=== PATIENT | male | born 1950 | race Caucasian/White ===

== ENCOUNTER 2018-06-21 05:22 | Day surgery (SDC) | payer OTHER ==
[~2018-06-21] VITALS: Ht 180.3 cm; Wt 95.1 kg
[2018-06-21] MEDS ORDERED: SODIUM CHLORIDE 0.9% 1000ML 1,000 ML IV ONE (05:54)
[2018-06-21 05:55] VITALS: BP 160/91
[2018-06-21] MEDS ORDERED: LOSA100T58 PO (06:28)
[2018-06-21] MEDS ORDERED: FURO80TA3 PO (06:28)
[2018-06-21] MEDS ORDERED: CARB200C4 PO (06:28)
[2018-06-21] MEDS ORDERED: PRAVASTATIN (06:28)
[2018-06-21] MEDS ORDERED: SPIR100T5 PO (06:28)
[2018-06-21] MEDS ORDERED: AMLODIPINE (06:28)
[2018-06-21] MEDS ORDERED: NPH,100V11 SQ (06:28)
[2018-06-21] MEDS ORDERED: CARV25TA PO (06:28)
[2018-06-21] MEDS ORDERED: INSU100C14 SQ (06:28)
[2018-06-21] MEDS ORDERED: AEC81 PO (06:28)
[2018-06-21] MEDS ORDERED: ADAL20SY SQ (06:28)
[2018-06-21] MEDS ORDERED: PROPOFOL 1000 MG/100 ML 100 ML IV ONE (06:34)
[2018-06-21 07:06] VITALS: BP 120/66
[2018-06-21 07:13] VITALS: BP 120/66
[2018-06-21 07:18] VITALS: BP 148/78
--- NOTE | 2018-06-21 07:45 | NUR ---
PT GIRLFRIEND AT BEDSIDE TO RECEIVE POST CARE INSTRUCTIONS, PT GIVEN APPOINTMENT FOLLOW UP DATE, BOTH PT AND FRIEND VERBALIZED UNDERSTANDING. PT STABLE NO DISTRESS, TOLERATED PROCEDURE VERY WELL, ABLE TO DRINK FLUIDS IN GI RECOVERY WITH NO DIFFICULTY. PT PLACED IN A WHEELCHAIR, DRIVEN HOME BY GIRLFRIEND.
== END 2018-06-21 07:45 | disposition home or self-care (01) ==
LOC: DAH 05:22 → ENDO 05:22
PROVIDERS: ATTEND Internal Medicine
DX: Z12.11 Encounter for screening for malignant neoplasm of colon (principal); D12.3 Benign neoplasm of transverse colon; K63.5 Polyp of colon; K29.50 Unspecified chronic gastritis without bleeding; K57.30 Diverticulosis of large intestine without perforation or abscess without bleeding; K64.0 First degree hemorrhoids; E11.9 Type 2 diabetes mellitus without complications; Z86.010 Personal history of colon polyps; G50.0 Trigeminal neuralgia; I10 Essential (primary) hypertension; E78.5 Hyperlipidemia, unspecified; J44.9 Chronic obstructive pulmonary disease, unspecified; Z86.73 Personal history of transient ischemic attack (TIA), and cerebral infarction without residual deficits; I21.3 ST elevation (STEMI) myocardial infarction of unspecified site; I11.0 Hypertensive heart disease with heart failure; I50.9 Heart failure, unspecified; G40.909 Epilepsy, unspecified, not intractable, without status epilepticus; Z98.890 Other specified postprocedural states; Z79.899 Other long term (current) drug therapy; Z79.01 Long term (current) use of anticoagulants; Z79.84 Long term (current) use of oral hypoglycemic drugs; Z80.8 Family history of malignant neoplasm of other organs or systems; Z80.1 Family history of malignant neoplasm of trachea, bronchus and lung
CPT/HCPCS: 43239; 45380; 45385; 82948 ×2; 88305; 93005; A4606; J2704; J7030

== ENCOUNTER 2018-08-14 21:00 | Emergency (ER) | payer OTHER ==
[~2018-08-14 21:00] MED LIST: ADAL20SY SQ; AEC81 PO; AMLODIPINE; CARB200C4 PO; CARV25TA PO; FURO80TA3 PO; INSU100C14 SQ; LOSA100T58 PO; NPH,100V11 SQ; PRAVASTATIN; SPIR100T5 PO
[2018-08-14] MEDS ORDERED: KETOROLAC TROMETHAMINE 30MG/ML ONE (21:45)
[2018-08-14] MEDS ORDERED: CYCLOBENZAPRINE HCL 10 MG TABLET ONE (21:45)
== END 2018-08-14 22:42 | disposition home or self-care (01) ==
LOC: EDH 21:00
DX: M54.16 Radiculopathy, lumbar region (principal); M25.551 Pain in right hip; J44.9 Chronic obstructive pulmonary disease, unspecified; I25.10 Atherosclerotic heart disease of native coronary artery without angina pectoris; I11.0 Hypertensive heart disease with heart failure; I50.9 Heart failure, unspecified; I25.2 Old myocardial infarction; E11.9 Type 2 diabetes mellitus without complications; Z86.73 Personal history of transient ischemic attack (TIA), and cerebral infarction without residual deficits; Z88.0 Allergy status to penicillin; Z88.8 Allergy status to other drugs, medicaments and biological substances; Z79.4 Long term (current) use of insulin; Z79.899 Other long term (current) drug therapy
CPT/HCPCS: 96372; 99283; J1885

== ENCOUNTER 2019-03-07 05:32 | Day surgery (SDC) | payer OTHER ==
[~2019-03-07] VITALS: Ht 182.9 cm; Wt 97.1 kg
[2019-03-07] VITALS (15 sets, daily range): BP systolic 141–199; BP diastolic 71–113
[~2019-03-07 05:32] MED LIST changes: +ALBU1.252 IH; +ATOR20TA65 PO; -CARB200C4 PO; +CARB200C7 PO; +CYAN1TAB44 PO; +GABA-529 PO; +ISOS20TA7 PO; +LATA7.5D OP; +SILD20TA14 PO
[2019-03-07] MEDS ORDERED: SODIUM CHLORIDE 0.9% 1000ML 1,000 ML IV ONE (05:45)
--- NOTE | 2019-03-07 06:34 | NUR ---
NURSING REPORTED TO DEANA MOREL ALL ABNORMAL FINDINGS AND HE SPOKE TO PT AND EVAL MED RECORD NO NEW ORDERS RECD WILL STATE PROC AT 8 AM TO CONT HIS EVALUATION Addendum: 03/07/19 at 0638 by EMILY THURSTON RN Amended: Links added.
[2019-03-07] MEDS ORDERED: PROPOFOL 10 MG/ML 20ML VIAL IV ONE (08:01)
--- NOTE | 2019-03-07 08:30 | NUR ---
DEANA NOTIFIED OF PT'S ELEVATED BP. NO NEW ORDERS GIVEN FOR BP TREATMENT. Addendum: 03/07/19 at 0842 by JONATHAN CUMMINS RN RN Amended: Links added.
[2019-03-07] MEDS ORDERED: INSULIN HUMULIN R 100 UNIT/ML 3ML ONE (08:51)
[2019-03-07] MEDS ORDERED: HYDRALAZINE HCL 20 MG/ML VIAL ONE (09:16)
== END 2019-03-07 10:09 | disposition home or self-care (01) ==
LOC: DAH 05:32 → ENDO 05:32
PROVIDERS: ATTEND Internal Medicine
DX: R13.10 Dysphagia, unspecified (principal); K22.70 Barrett's esophagus without dysplasia; K44.9 Diaphragmatic hernia without obstruction or gangrene; K31.89 Other diseases of stomach and duodenum; K51.90 Ulcerative colitis, unspecified, without complications; K29.70 Gastritis, unspecified, without bleeding; K64.9 Unspecified hemorrhoids; K57.30 Diverticulosis of large intestine without perforation or abscess without bleeding; J44.9 Chronic obstructive pulmonary disease, unspecified; I25.10 Atherosclerotic heart disease of native coronary artery without angina pectoris; I25.2 Old myocardial infarction; E11.9 Type 2 diabetes mellitus without complications; E78.5 Hyperlipidemia, unspecified; G40.909 Epilepsy, unspecified, not intractable, without status epilepticus; I11.0 Hypertensive heart disease with heart failure; I50.9 Heart failure, unspecified; Z86.73 Personal history of transient ischemic attack (TIA), and cerebral infarction without residual deficits; G50.0 Trigeminal neuralgia; Z79.82 Long term (current) use of aspirin; Z79.899 Other long term (current) drug therapy; Z79.4 Long term (current) use of insulin; Z80.0 Family history of malignant neoplasm of digestive organs
CPT/HCPCS: 43239; 43248; 82948 ×3; 93005; A4215; A4221; A4222; A4223; A4606; A4620; A4663; J0360; J1815; J2704; J7030

== ENCOUNTER 2019-03-11 06:37 | Inpatient (IN) | payer OTHER ==
[~2019-03-11] VITALS: Ht 182.9 cm; Wt 97.2 kg
[~2019-03-11 06:37] MED LIST changes: -AMLODIPINE; -ISOS20TA7 PO; -LATA7.5D OP; -LOSA100T58 PO; -NPH,100V11 SQ; -PRAVASTATIN; -SPIR100T5 PO
[2019-03-11] MEDS ORDERED: HYDRALAZINE HCL 20 MG/ML VIAL ONE ×2 (06:56→12:12)
[2019-03-11] MEDS ORDERED: NITROGLYCERIN 1GM/1 INCH PACKET TD ONE (06:56)
[2019-03-11] MEDS ORDERED: NITROGLYCERIN 0.4 MG SL TAB SL ONE (06:56)
[2019-03-11] MEDS ORDERED: MORPHINE SULFATE 2 MG/ML 1ML SYG ONE (06:57)
[2019-03-11] MEDS ORDERED: IPRATROPIUM/ALBUTEROL SULFATE 3 ML SOLUTION IH ONE (07:00)
[2019-03-11 07:04] LABS: BASOPHILS % (AUTO) 0.5 % (0.0-5.0); EOSINOPHILS % (AUTO) 0.4 % (0.0-8.0); HEMATOCRIT 41.3 % (42-54); LYMPHOCYTES % (AUTO) 15.6 % (21.0-51.0); MEAN CORPUSCULAR HEMOGLOBIN 31.2 pg (27.0-33.0); MEAN CORPUSCULAR HGB CONC 33.9 g/dL (32.0-36.0); MONOCYTES % (AUTO) 9.4 % (3.0-13.0); NEUTROPHILS % (AUTO) 74.1 % (40.0-77.0); NUCLEATED RED BLOOD CELLS 0.1 % (0.0-0.19); PLATELET COUNT (AUTO) 166 K/uL (130-400); RED BLOOD CELL COUNT(AUTO) 4.49 MIL/uL (4.50-6.20); RED CELL DISTRIBUTION WIDTH 13.9 % (11.0-15.5); WHITE BLOOD COUNT (AUTO) 6.8 K/uL (4.8-10.8)
[2019-03-11] MEDS ORDERED: CEFTRIAXONE SODIUM 1 GM ONE (07:13)
[2019-03-11] MEDS ORDERED: SODIUM CHLORIDE 0.9% 50 ML IV ONE (07:15)
[2019-03-11 07:16] LABS: INR 0.96 (0.85-1.15); PARTIAL THROMBOPLASTIN TIME 32.4 SEC (26.3-35.5); PROTHROMBIN TIME 10.1 SEC (9.6-11.6)
[2019-03-11 07:18] LABS: ABG BASE EXCESS -1.3 mmol/L (-2.0-3.0); ABG HCO3 24.1 mmol/L (21.0-28.0); ABG OXYGEN SATURATION 98.6 % (95.0-99.0); ABG PCO2 43 mmHg (35-48)
[2019-03-11 07:31] LABS: B-TYPE NATRIURETIC PEPTIDE 1300 pg/mL (0-100)
[2019-03-11 07:48] LABS: ALBUMIN 3.3 g/dL (3.5-5.0); BILIRUBIN,TOTAL 0.3 mg/dL (0.2-1.0); CREATININE 1.2 mg/dL (0.5-1.5); POTASSIUM 3.9 mmol/L (3.5-5.1); TOTAL PROTEIN, SERUM 7.8 g/dL (6.0-8.3)
[2019-03-11] MEDS ORDERED: LEVOFLOXACIN 500 MG/D5W 100 ML 100 ML ONE (08:12)
[2019-03-11 08:14] LABS: APPEARANCE,URINE Clear (CLEAR); BILIRUBIN,URINE Negative (NEGATIVE); COLOR,URINE Yellow (YELLOW); GLUCOSE, URINE (UA) >=1000 mg/dL (NEGATIVE); KETONES,URINE Negative (NEGATIVE); LEUKOCYTE ESTERASE ,URINE Negative (NEGATIVE); NITRATE,URINE Negative (NEGATIVE); OCCULT BLOOD,URINE Negative (NEGATIVE); PROTEIN,URINE 300 mg/dL (NEGATIVE); UROBILINOGEN,URINE 0.2 mg/dL (0.2-1.0)
[2019-03-11 08:24] LABS: BACTERIA,URINE None Seen /HPF (None Seen); RBC,URINE None Seen /HPF (0-1); SQUAMOUS EPITHELIAL CELL,UR Rare /HPF (0-2); WBC,URINE None Seen /HPF (0-1)
[2019-03-11] MEDS ORDERED: FUROSEMIDE 10 MG/ML 4ML VIAL ONE (09:04)
[2019-03-11] MEDS ORDERED: ALBUMIN (HUMAN) 25% 0 ML IV ONE (09:04)
[2019-03-11] MEDS ORDERED: ALBUMIN (HUMAN) 25% 50 ML IV ONE ×2 (09:06→09:14)
[2019-03-11] MEDS ORDERED: ONDANSETRON HCL 4 MG/2 ML VIAL IV PRN (10:15)
[2019-03-11] MEDS ORDERED: FUROSEMIDE 10 MG/ML 2ML VIAL IV SCH (10:15)
[2019-03-11] MEDS ORDERED: ACETAMINOPHEN 325 MG TAB PO PRN (10:15)
[2019-03-11] MEDS ORDERED: MORPHINE SULFATE 4 MG/1ML SYG IV PRN (10:15)
[2019-03-11] MEDS: INSULIN HUMULIN R 100 UNIT/ML 3ML SQ SCH ×2 (11:30→23:27)
[2019-03-11] MEDS ORDERED: INSULIN HUMULIN R 100 UNIT/ML 3ML ONE (12:20)
[2019-03-11 13:00] VITALS: BP 155/89
[2019-03-11] MEDS: FUROSEMIDE 10 MG/ML 2ML VIAL IV SCH ×3 (14:00→23:26)
[2019-03-11] MEDS ORDERED: IPRATROPIUM/ALBUTEROL SULFATE 3 ML SOLUTION IH SCH (14:00)
[2019-03-11] MEDS ORDERED: SODIUM CHLORIDE 3% FOR INHALATION 4 ML/AMP VIAL.NEB IH ONE ×2 (14:14→16:30)
[2019-03-11 16:35] VITALS: BP 143/78
[2019-03-11] MEDS ORDERED: NPH,100V11 SQ (18:30)
[2019-03-11] MEDS ORDERED: INSU100C6 SQ (18:30)
[2019-03-11] MEDS ORDERED: FURO80TA3 PO (18:30)
[2019-03-11] MEDS ORDERED: ISOS20TA7 PO (18:30)
[2019-03-11] MEDS ORDERED: GABA600T10 PO (18:30)
[2019-03-11] MEDS ORDERED: PANT40TA25 PO (18:30)
[2019-03-11] MEDS ORDERED: ASPI-555 PO (18:30)
[2019-03-11] MEDS ORDERED: CARAL PO (18:30)
[2019-03-11] MEDS ORDERED: CARB200T6 PO (18:30)
[2019-03-11] MEDS ORDERED: NITR0.4T50 SL (18:30)
[2019-03-11] MEDS ORDERED: ATOR40TA69 PO (18:30)
[2019-03-11 19:00] VITALS: BP 166/92
[2019-03-11 23:00] VITALS: BP 192/95
[2019-03-12] VITALS (7 sets, daily range): BP systolic 147–175; BP diastolic 78–101
[2019-03-12] MEDS: HYDRALAZINE HCL 20 MG/ML VIAL IV PRN ×2 (01:44→11:40)
[2019-03-12] MEDS ORDERED: SODIUM CHLORIDE 3% FOR INHALATION 4 ML/AMP VIAL.NEB IH ONE (01:44)
[2019-03-12 05:34] LABS: BASOPHILS % (AUTO) 0.6 % (0.0-5.0); EOSINOPHILS % (AUTO) 0.5 % (0.0-8.0); HEMATOCRIT 37.6 % (42-54); LYMPHOCYTES % (AUTO) 13.9 % (21.0-51.0); MEAN CORPUSCULAR HEMOGLOBIN 31.5 pg (27.0-33.0); MEAN CORPUSCULAR HGB CONC 35.1 g/dL (32.0-36.0); MEAN CORPUSCULAR VOLUME 89.9 fL (79-99); MONOCYTES % (AUTO) 12.1 % (3.0-13.0); NEUTROPHILS % (AUTO) 72.9 % (40.0-77.0); NUCLEATED RED BLOOD CELLS 0.1 % (0.0-0.19); PLATELET COUNT (AUTO) 173 K/uL (130-400); RED BLOOD CELL COUNT(AUTO) 4.19 MIL/uL (4.50-6.20); WHITE BLOOD COUNT (AUTO) 7.7 K/uL (4.8-10.8)
[2019-03-12 05:40] LABS: HEMOGLOBIN A1C 10.9 % (4.0-6.0)
[2019-03-12] MEDS: INSULIN HUMULIN R 100 UNIT/ML 3ML SQ SCH ×4 (05:43→22:27)
[2019-03-12 05:50] LABS: B-TYPE NATRIURETIC PEPTIDE 602 pg/mL (0-100)
[2019-03-12] MEDS: FUROSEMIDE 10 MG/ML 2ML VIAL IV SCH (05:51)
[2019-03-12 05:56] LABS: CREATININE 1.1 mg/dL (0.5-1.5); MAGNESIUM 1.5 mg/dL (1.80-2.40); PHOSPHORUS 3.3 mg/dL (2.5-4.9)
[2019-03-12 05:57] LABS: POTASSIUM 2.9 mmol/L (3.5-5.1)
--- NOTE | 2019-03-12 06:07 | NUR ---
MAGNESIUM: 1.5 ; POTASSIUM: 2.9 0607: CALLED FIGURE REFINISHER AND REPAIRER HOSPITALIST TO REPORT POTASSIUM AND MAGNESIUM RESULT 0640 - DID A FOLLOW UP CALL FOR HOSPITALIST. STILL WITH NO RETURN CALL. WAS ABLE TO TALK WITH DR. REAL AFTER GIVING REPORT TO DAY SHIFT NURSE. ORDERED TO PLACE PT ON PROTOCOL. DAY SHIFT NURSE MADE AWARE.
[2019-03-12] MEDS ORDERED: POTASSIUM CHLORIDE 20 MEQ ERTAB PO PRN (07:30)
[2019-03-12] MEDS ORDERED: POTASSIUM CHLORIDE 20MEQ/100ML 100 ML IV PRN (07:30)
[2019-03-12] MEDS ORDERED: MAGNESIUM 2GM PREMIX 50ML 50 ML IV PRN (07:30)
[2019-03-12] MEDS ORDERED: LIDOCAINE HCL-MPF 1% 2ML VIAL IV PRN (07:30)
[2019-03-12] MEDS: FAMOTIDINE 20MG TAB 20 MG TAB PO SCH (07:57)
[2019-03-12] MEDS: POTASSIUM CHLORIDE 10 MEQ/TAB.SA PO SCH (07:57)
[2019-03-12] MEDS: ENOXAPARIN SODIUM 40 MG/0.4 ML SYRINGE SQ SCH (07:58)
[2019-03-12] MEDS ORDERED: NITROGLYCERIN 0.4 MG SL TAB SL SCH (08:15)
[2019-03-12] MEDS: SUCRALFATE 1 GM/10 ML PO SCH ×4 (09:00→22:31)
[2019-03-12] MEDS: ISOSORBIDE MONONITRATE 20 MG TABLET PO SCH (09:00)
[2019-03-12] MEDS: GABAPENTIN 300 MG CAPSULE PO SCH ×3 (09:00→22:30)
[2019-03-12] MEDS: CARBAMAZEPINE 200 MG TABLET PO SCH ×3 (09:00→22:29)
[2019-03-12] MEDS: ASPIRIN 81 MG EC TAB PO SCH (09:00)
[2019-03-12] MEDS ORDERED: LEVOFLOXACIN 500 MG/D5W 100 ML 100 ML IV SCH (10:15)
--- NOTE | 2019-03-12 10:45 | NUR ---
DR HAMM (CLOUD ENGAGEMENT PARTNER) PAGED FOR DR MICHAEL HAMM PAGED REGARDING CARDIOLOGY CONSULT, STATED CALL DR RODRIGUEZ AND SEE IF HE WILL SEE PATIENT IF NOT THEN DR HAMM WILL COME SEE HIM. NOTED AND CARRIED OUT
--- NOTE | 2019-03-12 11:16 | NUR ---
DR RODRIGUEZ CALLED BACK RECEIVED CALL FROM DR RODRIGUEZ STATING TO START PT ON SPIRONOLACTONE 25MG BID, LASIX 40MG IV QD, CARVEDILOL 6.25 MG BID AND HE WILL BE IN TO REVIEW 2D ECHO
--- NOTE | 2019-03-12 11:45 | NUR ---
DCP CM met with pt discussed dc plans. Pt is independent prior to admission, lives at home alone. Denies any equipments/services. Feels safe to go back home, still drives arranges own needs, gf able to assist with transportation as necessary. DC plan to home once stable. CM to cont to follow up. Addendum: 03/12/19 at 1146 by BLAYNE RAMIRES LVN CM Amended: Links added.
[2019-03-12] MEDS: METOPROLOL TARTRATE 25 MG TAB PO SCH (12:45)
--- NOTE | 2019-03-12 13:04 | NUR ---
TRIGGER. Pt CURRENTLY ON FINELY CHOPPED, GI SOFT DIET. Pt TOLERATING DIET, BUT REPORTS THAT HE IS PENDING AN EGD THIS SUNDAY SECONDARY TO ESOPHAGEAL ISSUES AT THIS TIME. OROPHARYNGEAL SWALLOW WITHIN FUNCTIONAL LIMITS. RECOMMEND CONTINUES DIET AND GI CONSULT. ELEMENTARY ASSISTANT TEACHER COORDINATED CARE WITH NURSE WING. Addendum: 03/12/19 at 1306 by DEVANG JOHN, VANDANA ST Amended: Links added.
[2019-03-12] MEDS ORDERED: LEVOFLOXACIN 250 MG/D5W 50ML 50 ML IVPB SCH (13:15)
--- NOTE | 2019-03-12 16:31 | NUR ---
RD NOTIFICATION - DIFFICULTY SWALLOWING Pt admitted for Acute CHF, Dyspnea. Upon visit, Pt reports swallowing difficulty, requesting soft foods, tough meats with gravy; Recommend Mechanical Soft diet order, in addition to Low fat modification secondary to elevated cholesterol levels and LDL levels. Pt also reports nausea all day. PO intake 100%. Noted Pt with A1C 10.9, Glu 266. Pt LBM 03/10. Pt monitored labs: K 2.9, CO2 35, A1C 10.9, Glu 266, Mg 1.50, Trop I 0.23, Chol 237, LDL 156. RD to continue to monitor. Please notify RD as additional nutrition concerns arise. Thank you. Addendum: 03/12/19 at [address] RD Amended: Links added.
[2019-03-12] MEDS ORDERED: FUROSEMIDE 10 MG/ML 10ML VIAL IVP SCH (18:00)
[2019-03-12] MEDS ORDERED: CARVEDILOL 6.25 MG TABLET PO SCH (21:00)
[2019-03-12] MEDS ORDERED: METOPROLOL TARTRATE 25 MG TAB PO SCH (21:00)
[2019-03-12] MEDS: SPIRONOLACTONE 25 MG TAB PO SCH (22:29)
[2019-03-12] MEDS: ATORVASTATIN CALCIUM 40 MG TABLET PO SCH (22:29)
[2019-03-13 00:01] VITALS: BP 155/97
[2019-03-13 04:08] VITALS: BP 125/82
[2019-03-13 05:56] LABS: BASOPHILS % (AUTO) 0.6 % (0.0-5.0); EOSINOPHILS % (AUTO) 1.3 % (0.0-8.0); HEMATOCRIT 39.1 % (42-54); LYMPHOCYTES % (AUTO) 17.2 % (21.0-51.0); MEAN CORPUSCULAR HEMOGLOBIN 31.4 pg (27.0-33.0); MEAN CORPUSCULAR HGB CONC 33.8 g/dL (32.0-36.0); MEAN CORPUSCULAR VOLUME 92.9 fL (79-99); MONOCYTES % (AUTO) 12.8 % (3.0-13.0); NEUTROPHILS % (AUTO) 68.1 % (40.0-77.0); NUCLEATED RED BLOOD CELLS 0.1 % (0.0-0.19); PLATELET COUNT (AUTO) 162 K/uL (130-400); RED BLOOD CELL COUNT(AUTO) 4.21 MIL/uL (4.50-6.20); RED CELL DISTRIBUTION WIDTH 14.3 % (11.0-15.5); WHITE BLOOD COUNT (AUTO) 6.2 K/uL (4.8-10.8)
[2019-03-13 06:13] LABS: ALBUMIN 3.2 g/dL (3.5-5.0); BILIRUBIN,TOTAL 0.4 mg/dL (0.2-1.0); CREATININE 1.4 mg/dL (0.5-1.5); TOTAL PROTEIN, SERUM 7.5 g/dL (6.0-8.3)
[2019-03-13 07:00] VITALS: BP 152/88
[2019-03-13] MEDS: INSULIN HUMULIN R 100 UNIT/ML 3ML SQ SCH ×4 (07:04→22:59)
[2019-03-13] MEDS ORDERED: METOPROLOL TARTRATE 25 MG TAB PO SCH (09:00)
[2019-03-13] MEDS: CARBAMAZEPINE 200 MG TABLET PO SCH ×3 (10:27→20:52)
[2019-03-13] MEDS: ASPIRIN 81 MG EC TAB PO SCH (10:27)
[2019-03-13] MEDS: SUCRALFATE 1 GM/10 ML PO SCH ×4 (10:27→20:51)
[2019-03-13] MEDS: ISOSORBIDE MONONITRATE 20 MG TABLET PO SCH (10:27)
[2019-03-13] MEDS: PANTOPRAZOLE SODIUM 40 MG TABLET.DR PO SCH (10:28)
[2019-03-13] MEDS: FAMOTIDINE 20MG TAB 20 MG TAB PO SCH (10:28)
[2019-03-13] MEDS: ENOXAPARIN SODIUM 40 MG/0.4 ML SYRINGE SQ SCH (10:28)
[2019-03-13] MEDS: GABAPENTIN 300 MG CAPSULE PO SCH ×3 (10:28→20:52)
[2019-03-13] MEDS: SPIRONOLACTONE 25 MG TAB PO SCH ×2 (10:28→20:51)
[2019-03-13] MEDS: FUROSEMIDE 10 MG/ML 4ML VIAL IV SCH (10:29)
[2019-03-13] MEDS: POTASSIUM CHLORIDE 10 MEQ/TAB.SA PO SCH (10:29)
[2019-03-13 11:00] VITALS: BP 139/78
[2019-03-13] MEDS: METOPROLOL TARTRATE 25 MG TAB PO SCH (12:00)
[2019-03-13 16:00] VITALS: BP 161/97
[2019-03-13 19:12] VITALS: BP 175/98
[2019-03-13] MEDS: ATORVASTATIN CALCIUM 40 MG TABLET PO SCH (20:51)
[2019-03-13] MEDS: METOPROLOL TARTRATE 50 MG TAB PO SCH (20:52)
[2019-03-14 00:10] VITALS: BP 135/89
[2019-03-14 04:08] VITALS: BP 134/80
[2019-03-14 05:10] LABS: BASOPHILS % (AUTO) 0.5 % (0.0-5.0); EOSINOPHILS % (AUTO) 1.1 % (0.0-8.0); HEMATOCRIT 34.7 % (42-54); LYMPHOCYTES % (AUTO) 17.5 % (21.0-51.0); MEAN CORPUSCULAR HEMOGLOBIN 31.5 pg (27.0-33.0); MEAN CORPUSCULAR HGB CONC 34.3 g/dL (32.0-36.0); MEAN CORPUSCULAR VOLUME 91.7 fL (79-99); MONOCYTES % (AUTO) 13.7 % (3.0-13.0); NEUTROPHILS % (AUTO) 67.2 % (40.0-77.0); NUCLEATED RED BLOOD CELLS 0.1 % (0.0-0.19); PLATELET COUNT (AUTO) 164 K/uL (130-400); RED BLOOD CELL COUNT(AUTO) 3.79 MIL/uL (4.50-6.20); WHITE BLOOD COUNT (AUTO) 5.3 K/uL (4.8-10.8)
[2019-03-14 05:22] LABS: B-TYPE NATRIURETIC PEPTIDE 408 pg/mL (0-100)
[2019-03-14 05:25] LABS: BILIRUBIN,TOTAL 0.3 mg/dL (0.2-1.0); CREATININE 1.3 mg/dL (0.5-1.5); POTASSIUM 3.7 mmol/L (3.5-5.1)
[2019-03-14] MEDS: PANTOPRAZOLE SODIUM 40 MG TABLET.DR PO SCH (06:30)
[2019-03-14] MEDS: INSULIN HUMULIN R 100 UNIT/ML 3ML SQ SCH ×4 (06:31→22:24)
[2019-03-14] MEDS: METOPROLOL TARTRATE 25 MG TAB PO SCH (07:23)
[2019-03-14 08:06] VITALS: BP 148/91
[2019-03-14] MEDS: ASPIRIN 81 MG EC TAB PO SCH (09:07)
[2019-03-14] MEDS: CARBAMAZEPINE 200 MG TABLET PO SCH ×3 (09:08→22:22)
[2019-03-14] MEDS: ISOSORBIDE MONONITRATE 20 MG TABLET PO SCH (09:08)
[2019-03-14] MEDS: METOPROLOL TARTRATE 50 MG TAB PO SCH ×2 (09:08→22:16)
[2019-03-14] MEDS: SPIRONOLACTONE 25 MG TAB PO SCH (09:09)
[2019-03-14] MEDS: POTASSIUM CHLORIDE 10 MEQ/TAB.SA PO SCH (09:09)
[2019-03-14] MEDS: FUROSEMIDE 10 MG/ML 4ML VIAL IV SCH (09:09)
[2019-03-14] MEDS: GABAPENTIN 300 MG CAPSULE PO SCH ×3 (09:09→22:23)
[2019-03-14] MEDS: FAMOTIDINE 20MG TAB 20 MG TAB PO SCH (09:09)
[2019-03-14] MEDS: ENOXAPARIN SODIUM 40 MG/0.4 ML SYRINGE SQ SCH (09:10)
[2019-03-14] MEDS: SUCRALFATE 1 GM/10 ML PO SCH ×4 (09:10→22:22)
--- NOTE | 2019-03-14 11:12 | NUR ---
CM Note: [facility] pending acceptance CM met with pt discussed MD recs for short term rehab, pt states he has medicare A&B, he would like to use it and he would like to go to [facility], [facility] signed. Faxed order, clinicals, PT, PAS[facility], confirmation received. Spoke to Lesa sloan/[facility], will come eval pt. Pt pending acceptance. EMS arranged and faxed for today, primary nurse to call [facility] once pt ready to DC. Pending Dr Sams consult and recs today re: right sided leg weakness x 2 days. Primary nurse aware. CM to cont to follow up.
[2019-03-14 12:00] VITALS: BP 132/77
--- NOTE | 2019-03-14 13:05 | NUR ---
CM Note: [facility] acceptance CM spoke to Lesa sloan/[facility] came to eval pt. Pt has acceptance. EMS arranged and faxed for today. Primary nurse to call [facility] once pt ready to DC. Pt pending Dr Sams clearance. Primary nurse aware. CM to cont to follow up.
[2019-03-14 16:26] VITALS: BP 134/76
[2019-03-14] MEDS: LACTULOSE 20 GM/30 ML UDCUP PO PRN (17:11)
[2019-03-14 20:00] VITALS: BP 140/77
[2019-03-14] MEDS: ATORVASTATIN CALCIUM 40 MG TABLET PO SCH (22:16)
[2019-03-14] MEDS: ISOSORBIDE MONO 30MG TAB SR PO SCH (22:16)
[2019-03-15] VITALS (7 sets, daily range): BP systolic 132–166; BP diastolic 78–93
[2019-03-15] MEDS: HYDRALAZINE HCL 20 MG/ML VIAL IV PRN (04:57)
[2019-03-15 06:07] LABS: BASOPHILS % (AUTO) 0.5 % (0.0-5.0); EOSINOPHILS % (AUTO) 1.7 % (0.0-8.0); HEMATOCRIT 36.3 % (42-54); LYMPHOCYTES % (AUTO) 18.6 % (21.0-51.0); MEAN CORPUSCULAR HEMOGLOBIN 31.4 pg (27.0-33.0); MEAN CORPUSCULAR HGB CONC 34.2 g/dL (32.0-36.0); MEAN CORPUSCULAR VOLUME 91.7 fL (79-99); MONOCYTES % (AUTO) 12.4 % (3.0-13.0); NEUTROPHILS % (AUTO) 66.8 % (40.0-77.0); PLATELET COUNT (AUTO) 144 K/uL (130-400); RED BLOOD CELL COUNT(AUTO) 3.96 MIL/uL (4.50-6.20); RED CELL DISTRIBUTION WIDTH 13.6 % (11.0-15.5); WHITE BLOOD COUNT (AUTO) 5.8 K/uL (4.8-10.8)
[2019-03-15 06:22] LABS: ALBUMIN 3.1 g/dL (3.5-5.0); BILIRUBIN,TOTAL 0.3 mg/dL (0.2-1.0); CREATININE 1.2 mg/dL (0.5-1.5); POTASSIUM 3.2 mmol/L (3.5-5.1); TOTAL PROTEIN, SERUM 7.4 g/dL (6.0-8.3)
[2019-03-15] MEDS: INSULIN HUMULIN R 100 UNIT/ML 3ML SQ SCH ×4 (06:45→21:31)
[2019-03-15] MEDS: PANTOPRAZOLE SODIUM 40 MG TABLET.DR PO SCH (07:30)
[2019-03-15] MEDS: SUCRALFATE 1 GM/10 ML PO SCH ×4 (09:41→21:28)
[2019-03-15] MEDS: ASPIRIN 81 MG EC TAB PO SCH (09:42)
[2019-03-15] MEDS: GABAPENTIN 300 MG CAPSULE PO SCH ×3 (09:42→21:29)
[2019-03-15] MEDS: FAMOTIDINE 20MG TAB 20 MG TAB PO SCH (09:42)
[2019-03-15] MEDS: THIAMINE HCL 100 MG TABLET PO SCH (09:43)
[2019-03-15] MEDS: POTASSIUM CHLORIDE 10 MEQ/TAB.SA PO SCH (09:43)
[2019-03-15] MEDS: SPIRONOLACTONE 25 MG TAB PO SCH (09:43)
[2019-03-15] MEDS: METOPROLOL TARTRATE 50 MG TAB PO SCH ×2 (09:43→21:28)
[2019-03-15] MEDS: FUROSEMIDE 40 MG TABLET PO SCH (09:43)
[2019-03-15] MEDS: FOLIC ACID 1 MG TABLET PO SCH (09:43)
[2019-03-15] MEDS: CARBAMAZEPINE 200 MG TABLET PO SCH ×3 (09:44→21:28)
[2019-03-15] MEDS: ENOXAPARIN SODIUM 40 MG/0.4 ML SYRINGE SQ SCH (09:46)
--- NOTE | 2019-03-15 11:00 | NUR ---
Dr. Perdomo Consult As per Dr. Sams via telephone conversation, pt can wait and be seen by Dr. Perdomo on 03/17/19 if pt's symptoms is the same or better in reference to lumber CT results. If pt's symptoms worsens please go ahead and consult Neurosurgeon front office secretary for the day.
[2019-03-15] MEDS ORDERED: LACTULOSE 20 GM/30 ML UDCUP PO PRN (12:00)
[2019-03-15] MEDS ORDERED: LACTULOSE 20 GM/30 ML UDCUP PO SCH (12:00)
[2019-03-15] MEDS: LACTULOSE 20 GM/30 ML UDCUP PO PRN (12:08)
[2019-03-15] MEDS: METOPROLOL TARTRATE 25 MG TAB PO SCH (12:08)
[2019-03-15] MEDS: POTASSIUM CHLORIDE 10% ELIXIR 20 MEQ/15 ML UDCUP PO SCH ×2 (13:56→21:29)
[2019-03-15] MEDS: ATORVASTATIN CALCIUM 40 MG TABLET PO SCH (21:28)
[2019-03-15] MEDS: ISOSORBIDE MONO 30MG TAB SR PO SCH (21:28)
[2019-03-16 03:10] VITALS: BP 154/91
[2019-03-16] MEDS: INSULIN HUMULIN R 100 UNIT/ML 3ML SQ SCH ×4 (05:51→21:10)
[2019-03-16 06:08] LABS: BASOPHILS % (AUTO) 0.6 % (0.0-5.0); EOSINOPHILS % (AUTO) 2.4 % (0.0-8.0); LYMPHOCYTES % (AUTO) 19.2 % (21.0-51.0); MEAN CORPUSCULAR HEMOGLOBIN 31.4 pg (27.0-33.0); MEAN CORPUSCULAR HGB CONC 34.6 g/dL (32.0-36.0); MONOCYTES % (AUTO) 10.4 % (3.0-13.0); NEUTROPHILS % (AUTO) 67.4 % (40.0-77.0); PLATELET COUNT (AUTO) 170 K/uL (130-400); RED BLOOD CELL COUNT(AUTO) 4.06 MIL/uL (4.50-6.20); RED CELL DISTRIBUTION WIDTH 13.7 % (11.0-15.5); WHITE BLOOD COUNT (AUTO) 5.3 K/uL (4.8-10.8)
[2019-03-16 06:17] LABS: POTASSIUM 3.7 mmol/L (3.5-5.1)
--- NOTE | 2019-03-16 07:29 | NUR ---
PATIENT UPDATE Pt noted getting more confused during the night for the last 2 nights, more pleasantly confused last night. Reoriented most of the night, repositioned in the bed for the most part. Still moves weakly in the bed with assistance, attempted getting out of bed once tonight, bed alarm on, girlfriend at the bedside. Able to move the rt leg more freely, no signs of discomfort, blood pressure more stable overnight with the new regimen. Kept the pt on 2l per nasal cannula, O2 sat desats to low 90's and high 80's at room air. No attempts made in pulling the key cath, gets very uncomfortable everytime the catheter gets clamped and starts pulling on it, kept the fc unclamped the whole night, slept a whole lot better overnight. Blood sugar this am at 128 from 232 last night. Pending transfer to [facility] once cleared by .
[2019-03-16 07:30] VITALS: BP 155/93
[2019-03-16] MEDS: PANTOPRAZOLE SODIUM 40 MG TABLET.DR PO SCH (07:30)
--- NOTE | 2019-03-16 08:10 | NUR ---
key d/c at this time.
[2019-03-16] MEDS: SPIRONOLACTONE 25 MG TAB PO SCH (10:34)
[2019-03-16] MEDS: GABAPENTIN 300 MG CAPSULE PO SCH ×3 (10:34→20:57)
[2019-03-16] MEDS: FAMOTIDINE 20MG TAB 20 MG TAB PO SCH (10:34)
[2019-03-16] MEDS: POTASSIUM CHLORIDE 10% ELIXIR 20 MEQ/15 ML UDCUP PO SCH (10:34)
[2019-03-16] MEDS: FUROSEMIDE 40 MG TABLET PO SCH (10:35)
[2019-03-16] MEDS: METOPROLOL TARTRATE 50 MG TAB PO SCH ×2 (10:35→20:56)
[2019-03-16] MEDS: CARBAMAZEPINE 200 MG TABLET PO SCH ×3 (10:35→20:56)
[2019-03-16] MEDS: FOLIC ACID 1 MG TABLET PO SCH (10:35)
[2019-03-16] MEDS: ASPIRIN 81 MG EC TAB PO SCH (10:35)
[2019-03-16] MEDS: THIAMINE HCL 100 MG TABLET PO SCH (10:36)
[2019-03-16] MEDS: POTASSIUM CHLORIDE 10 MEQ/TAB.SA PO SCH (10:36)
[2019-03-16] MEDS: SUCRALFATE 1 GM/10 ML PO SCH ×4 (10:36→20:57)
[2019-03-16] MEDS: ENOXAPARIN SODIUM 40 MG/0.4 ML SYRINGE SQ SCH (10:37)
[2019-03-16 11:00] VITALS: BP 154/88
[2019-03-16] MEDS: METOPROLOL TARTRATE 25 MG TAB PO SCH (12:46)
--- NOTE | 2019-03-16 14:43 | NUR ---
Pt reported to void X 1
[2019-03-16 16:00] VITALS: BP 143/84
[2019-03-16 19:20] VITALS: BP 142/94
[2019-03-16] MEDS: ISOSORBIDE MONO 30MG TAB SR PO SCH (20:56)
[2019-03-16] MEDS: ATORVASTATIN CALCIUM 40 MG TABLET PO SCH (20:56)
[2019-03-16 23:00] VITALS: BP 120/77
[2019-03-17] VITALS (8 sets, daily range): BP systolic 115–177; BP diastolic 63–90
--- NOTE | 2019-03-17 03:37 | NUR ---
SLEEP Pt sleeping well.Respirations even and unlabored.Girlfriend at bedside.
[2019-03-17] MEDS: INSULIN HUMULIN R 100 UNIT/ML 3ML SQ SCH ×4 (05:35→21:51)
[2019-03-17 05:36] LABS: BASOPHILS % (AUTO) 0.6 % (0.0-5.0); EOSINOPHILS % (AUTO) 2.3 % (0.0-8.0); HEMATOCRIT 34.8 % (42-54); LYMPHOCYTES % (AUTO) 19.1 % (21.0-51.0); MEAN CORPUSCULAR HEMOGLOBIN 31.6 pg (27.0-33.0); MEAN CORPUSCULAR HGB CONC 34.3 g/dL (32.0-36.0); MEAN CORPUSCULAR VOLUME 92.1 fL (79-99); PLATELET COUNT (AUTO) 154 K/uL (130-400); RED BLOOD CELL COUNT(AUTO) 3.78 MIL/uL (4.50-6.20); RED CELL DISTRIBUTION WIDTH 13.9 % (11.0-15.5); WHITE BLOOD COUNT (AUTO) 5.1 K/uL (4.8-10.8)
[2019-03-17 05:51] LABS: CREATININE 1.1 mg/dL (0.5-1.5); POTASSIUM 4.1 mmol/L (3.5-5.1)
[2019-03-17] MEDS: PANTOPRAZOLE SODIUM 40 MG TABLET.DR PO SCH (06:07)
[2019-03-17] MEDS: THIAMINE HCL 100 MG TABLET PO SCH (09:23)
[2019-03-17] MEDS: ASPIRIN 81 MG EC TAB PO SCH (09:23)
[2019-03-17] MEDS: FOLIC ACID 1 MG TABLET PO SCH (09:24)
[2019-03-17] MEDS: FUROSEMIDE 40 MG TABLET PO SCH (09:24)
[2019-03-17] MEDS: METOPROLOL TARTRATE 50 MG TAB PO SCH ×2 (09:24→21:53)
[2019-03-17] MEDS: FAMOTIDINE 20MG TAB 20 MG TAB PO SCH (09:24)
[2019-03-17] MEDS: SPIRONOLACTONE 25 MG TAB PO SCH (09:24)
[2019-03-17] MEDS: CARBAMAZEPINE 200 MG TABLET PO SCH ×3 (09:24→21:00)
[2019-03-17] MEDS: GABAPENTIN 300 MG CAPSULE PO SCH ×3 (09:25→21:53)
[2019-03-17] MEDS: POTASSIUM CHLORIDE 10 MEQ/TAB.SA PO SCH (09:25)
[2019-03-17] MEDS: ENOXAPARIN SODIUM 40 MG/0.4 ML SYRINGE SQ SCH (09:26)
[2019-03-17] MEDS: SUCRALFATE 1 GM/10 ML PO SCH ×4 (09:26→21:53)
[2019-03-17] MEDS: METOPROLOL TARTRATE 25 MG TAB PO SCH (12:00)
--- NOTE | 2019-03-17 13:26 | NUR ---
CHANGE IN STATUS Tele call to inform pt of change in status of rhythm from SR to Afib sustained in the 120's, VS stat resulted bp: 160/77, HR 121, O2 97% on 2L RR 20 and BS of 209, Fire Extinguisher Technician Dr. De Los Santos called and order for IV amiodarone per protocol stat, EKG, CBC,CMP, Liver function test and TSH in AM. Order carried out as planed. also notified neurosurgeon has been consulted and pending to see pt.
[2019-03-17] MEDS ORDERED: PHARMACY COMMUNICATION MISC SCH (13:45)
[2019-03-17] MEDS ORDERED: AMIODARONE HCL 900 MG in DEXTROSE 5%-WATER 500 ML IV PRN (14:00)
[2019-03-17] MEDS ORDERED: AMIODARONE HCL 150 MG in DEXTROSE 5%-WATER 100 ML IV PRN (14:00)
--- NOTE | 2019-03-17 14:35 | NUR ---
Family member Esteban ( Girl Lover) notified of pt's transfer from [phone] Perdomo
--- NOTE | 2019-03-17 14:40 | NUR ---
ARRIVAL TO FLOOR ROOM 208 TRANSFERRED FROM 3RD FLOOR BED TO ICU BED. PT IS AWAKE AND ALERT AND ORIENTED. NO VISIBLE SIGNS OF DISTRESS NOTED. MONITOR CONNECTED TO PATIENT. HR VIA TELE 120 AFIB. AMIODARONE GTT STARTED PER PROTOCOL. HOB UP AT 35 DEGREES. CALL LIGHT WITHIN REACH.
--- NOTE | 2019-03-17 15:13 | NUR ---
CM Note: [facility] reacceptance CM spoke to Lesa Ramesh, updated clinicals received this morning. Made aware pt converted to A.fib and had to transfer to 2nd floor. Pt has reacceptance. Primary nurse aware. CM to cont to follow up.
--- NOTE | 2019-03-17 19:00 | NUR ---
Assumed care at 1900. Patient resting comfortably. No complaints of pain. Patient in no apparent distress. Please see physical assessment for further detail. Will continue to monitor.
--- NOTE | 2019-03-17 21:05 | NUR ---
Patient converted back to normal sinus rhythm at this time. Will continue to monitor.
[2019-03-17] MEDS: ISOSORBIDE MONO 30MG TAB SR PO SCH (21:53)
[2019-03-17] MEDS: ATORVASTATIN CALCIUM 40 MG TABLET PO SCH (22:01)
[2019-03-18 03:21] VITALS: BP 114/71
[2019-03-18 03:58] LABS: HEMATOCRIT 32.1 % (42-54); MEAN CORPUSCULAR HEMOGLOBIN 31.6 pg (27.0-33.0); MEAN CORPUSCULAR HGB CONC 34.4 g/dL (32.0-36.0); PLATELET COUNT (AUTO) 159 K/uL (130-400); RED BLOOD CELL COUNT(AUTO) 3.49 MIL/uL (4.50-6.20); RED CELL DISTRIBUTION WIDTH 13.8 % (11.0-15.5); WHITE BLOOD COUNT (AUTO) 5.8 K/uL (4.8-10.8)
[2019-03-18 04:25] LABS: ALBUMIN 2.6 g/dL (3.5-5.0); BILIRUBIN,DIRECT 0.1 mg/dL (0.0-0.3); BILIRUBIN,TOTAL 0.4 mg/dL (0.2-1.0); CREATININE 1.2 mg/dL (0.5-1.5); POTASSIUM 3.7 mmol/L (3.5-5.1); THYROID STIMULATING HORMONE 2.19 uIU/mL (0.36-3.74); TOTAL PROTEIN, SERUM 6.8 g/dL (6.0-8.3)
[2019-03-18 07:15] VITALS: BP 145/78
[2019-03-18] MEDS: INSULIN HUMULIN R 100 UNIT/ML 3ML SQ SCH ×4 (07:30→20:32)
[2019-03-18] MEDS: FAMOTIDINE 20MG TAB 20 MG TAB PO SCH (08:23)
[2019-03-18] MEDS: PANTOPRAZOLE SODIUM 40 MG TABLET.DR PO SCH (08:23)
[2019-03-18] MEDS: METOPROLOL TARTRATE 50 MG TAB PO SCH ×3 (08:23→20:28)
[2019-03-18] MEDS: THIAMINE HCL 100 MG TABLET PO SCH (08:24)
[2019-03-18] MEDS: POTASSIUM CHLORIDE 10 MEQ/TAB.SA PO SCH (08:24)
[2019-03-18] MEDS: FUROSEMIDE 40 MG TABLET PO SCH (08:26)
[2019-03-18] MEDS: SPIRONOLACTONE 25 MG TAB PO SCH (08:26)
[2019-03-18] MEDS: FOLIC ACID 1 MG TABLET PO SCH (08:26)
[2019-03-18] MEDS: GABAPENTIN 300 MG CAPSULE PO SCH ×3 (08:32→20:28)
[2019-03-18] MEDS: SUCRALFATE 1 GM/10 ML PO SCH ×4 (08:32→20:27)
[2019-03-18] MEDS: CARBAMAZEPINE 200 MG TABLET PO SCH ×3 (08:32→20:27)
[2019-03-18] MEDS: ASPIRIN 81 MG EC TAB PO SCH (08:32)
[2019-03-18] MEDS ORDERED: ENOXAPARIN SODIUM 100 MG/1 ML SQ SCH (09:00)
--- NOTE | 2019-03-18 09:20 | NUR ---
DR BROWN AT BEDSIDE TO ASSESS PATIENT, PER MD, HE'S NOT PLANNING TO DO ANY SURGERY ON THIS PATIENT.
[2019-03-18 11:00] VITALS: BP 151/95
--- NOTE | 2019-03-18 14:41 | NUR ---
RD FOLLOW UP Upon visit, Pt reports tolerating current diet order with no report of GI distress and good PO intake at 80-100%. Pt LBM 03/15/19; Recommend laxative/stool softener for possible constipation. Pt monitored labs: CO2 35, BUN 19, Glu 156, Alb 2.6. RD to continue to monitor. Please notify RD as additional nutrition concerns arise. Thank you. Addendum: 03/18/19 at [address] RD Amended: Links added.
[2019-03-18] MEDS ORDERED: ADAL1PEN SQ (15:46)
[2019-03-18 15:58] VITALS: BP 112/77
[2019-03-18] MEDS ORDERED: ADALIMUMAB SQ SCH (17:27)
--- NOTE | 2019-03-18 18:20 | NUR ---
DC PLAN VISITED WITH PATIENT. PATIENT CHANGED MIND SAYS [facility] OKAY WITH GOING TO [facility]. REFERRAL FAXED WILL FOLLOW UP IN THE MORNING. Addendum: 03/18/19 at 1823 by JUNE YI RN CM Amended: Links added.
--- NOTE | 2019-03-18 19:22 | NUR ---
ASSESSMENT PATIENT IS RESTING IN BED. ALERT AND ORIENTED X3. NO COMPLAINTS OF PAIN AT THIS TIME. NO SHORTNESS OF BREATH. NO SIGNS OF DISTRESS. FAMILY IS AT BEDSIDE. PATIENT APPEARS COMFORTABLE. CALL LIGHT, BEDSIDE TABLE, AND PERSONAL BELONGINGS ARE WITHIN REACH. REINFORCED TO CALL FOR ANY NEEDS. NO QUESTIONS, CONCERNS, OR NEEDS AT THIS TIME.
[2019-03-18 19:23] VITALS: BP 133/91
[2019-03-18] MEDS: ATORVASTATIN CALCIUM 40 MG TABLET PO SCH (20:26)
[2019-03-18] MEDS: APIXABAN 5 MG TABLET PO SCH (20:27)
[2019-03-18] MEDS: ISOSORBIDE MONO 30MG TAB SR PO SCH (20:27)
[2019-03-18] MEDS: AMIODARONE HCL 200 MG TABLET PO SCH (20:28)
[2019-03-18 23:14] VITALS: BP 143/81
[2019-03-19 03:15] VITALS: BP 115/69
[2019-03-19] MEDS: PANTOPRAZOLE SODIUM 40 MG TABLET.DR PO SCH (06:06)
[2019-03-19] MEDS: INSULIN HUMULIN R 100 UNIT/ML 3ML SQ SCH ×4 (06:21→21:08)
[2019-03-19 07:28] VITALS: BP 130/80
[2019-03-19] MEDS: ASPIRIN 81 MG EC TAB PO SCH (08:42)
[2019-03-19] MEDS: FAMOTIDINE 20MG TAB 20 MG TAB PO SCH (08:42)
[2019-03-19] MEDS: FUROSEMIDE 20 MG TABLET PO SCH (08:43)
[2019-03-19] MEDS: SPIRONOLACTONE 25 MG TAB PO SCH (08:43)
[2019-03-19] MEDS: METOPROLOL TARTRATE 50 MG TAB PO SCH ×3 (08:43→21:00)
[2019-03-19] MEDS: APIXABAN 5 MG TABLET PO SCH ×2 (08:43→21:01)
[2019-03-19] MEDS: THIAMINE HCL 100 MG TABLET PO SCH (08:43)
[2019-03-19] MEDS: CARBAMAZEPINE 200 MG TABLET PO SCH ×3 (08:43→21:01)
[2019-03-19] MEDS: FOLIC ACID 1 MG TABLET PO SCH (08:43)
[2019-03-19] MEDS: POTASSIUM CHLORIDE 10 MEQ/TAB.SA PO SCH (08:44)
[2019-03-19] MEDS: AMIODARONE HCL 200 MG TABLET PO SCH ×2 (08:44→21:01)
[2019-03-19] MEDS: GABAPENTIN 300 MG CAPSULE PO SCH ×3 (08:49→21:01)
[2019-03-19] MEDS: SUCRALFATE 1 GM/10 ML PO SCH ×4 (09:57→21:02)
[2019-03-19 11:42] VITALS: BP 136/73
[2019-03-19] MEDS ORDERED: METO50TA18 PO (12:04)
[2019-03-19] MEDS ORDERED: INSLAN SQ (12:04)
[2019-03-19] MEDS ORDERED: AMIO200T5 PO (12:04)
[2019-03-19] MEDS ORDERED: INSU100C6 SQ (12:04)
[2019-03-19] MEDS ORDERED: RAMI2.5C16 PO (12:04)
[2019-03-19 15:33] VITALS: BP 154/94
--- NOTE | 2019-03-19 16:20 | NUR ---
[facility]PO[facility] TO [facility] AND IT IS BEFORE MEDICAL REVIEW. Addendum: 03/19/19 at 1622 by JUNE YI RN CM Amended: Links added.
[2019-03-19 19:02] VITALS: BP 116/67
[2019-03-19] MEDS: ISOSORBIDE MONO 30MG TAB SR PO SCH (21:00)
--- NOTE | 2019-03-19 21:00 | NUR ---
pt with borderline low bp, imdur and lopressor held
[2019-03-19] MEDS: ATORVASTATIN CALCIUM 40 MG TABLET PO SCH (21:02)
[2019-03-19 23:21] VITALS: BP 114/69
[2019-03-20] VITALS (7 sets, daily range): BP systolic 120–155; BP diastolic 73–96
[2019-03-20] MEDS: INSULIN HUMULIN R 100 UNIT/ML 3ML SQ SCH ×4 (05:51→21:06)
--- NOTE | 2019-03-20 08:00 | NUR ---
AM ASSESSMENT PT LAYING IN BED, RESTING. FAMILY @ BEDSIDE. A/O X 3. NO SOB. NO DISTRESS NOTED. O2 NC @ 2L. DENIES CHEST PAIN OR DISCOMFORT. DENIES PALPITATIONS. TELE: SR 60s. DENIES N/V AND/OR DIARRHEA. UP W/ASSISTANCE. ELIOE @ BEDSIDE. INSTRUCTED TO CALL FOR ASSISTANCE. CALL JACOB W/IN REACH.
[2019-03-20] MEDS: FUROSEMIDE 20 MG TABLET PO SCH (08:16)
[2019-03-20] MEDS: ASPIRIN 81 MG EC TAB PO SCH (08:16)
[2019-03-20] MEDS: CARBAMAZEPINE 200 MG TABLET PO SCH ×3 (08:16→20:55)
[2019-03-20] MEDS: METOPROLOL TARTRATE 50 MG TAB PO SCH ×3 (08:17→20:56)
[2019-03-20] MEDS: FOLIC ACID 1 MG TABLET PO SCH (08:17)
[2019-03-20] MEDS: APIXABAN 5 MG TABLET PO SCH ×2 (08:17→20:55)
[2019-03-20] MEDS: GABAPENTIN 300 MG CAPSULE PO SCH ×3 (08:18→20:56)
[2019-03-20] MEDS: FAMOTIDINE 20MG TAB 20 MG TAB PO SCH (08:18)
[2019-03-20] MEDS: SPIRONOLACTONE 25 MG TAB PO SCH (08:19)
[2019-03-20] MEDS: THIAMINE HCL 100 MG TABLET PO SCH (08:19)
[2019-03-20] MEDS: AMIODARONE HCL 200 MG TABLET PO SCH ×2 (08:19→20:56)
[2019-03-20] MEDS: POTASSIUM CHLORIDE 10 MEQ/TAB.SA PO SCH (08:19)
[2019-03-20] MEDS: PANTOPRAZOLE SODIUM 40 MG TABLET.DR PO SCH (08:20)
[2019-03-20] MEDS: SUCRALFATE 1 GM/10 ML PO SCH ×4 (08:20→20:57)
[2019-03-20] MEDS: ISOSORBIDE MONO 30MG TAB SR PO SCH (20:55)
[2019-03-20] MEDS: ATORVASTATIN CALCIUM 40 MG TABLET PO SCH (20:56)
[2019-03-21 03:10] VITALS: BP 141/83
[2019-03-21] MEDS: INSULIN HUMULIN R 100 UNIT/ML 3ML SQ SCH ×2 (06:36→11:30)
[2019-03-21 07:24] VITALS: BP 136/79
[2019-03-21] MEDS: PANTOPRAZOLE SODIUM 40 MG TABLET.DR PO SCH (08:06)
[2019-03-21] MEDS: SPIRONOLACTONE 25 MG TAB PO SCH (08:06)
[2019-03-21] MEDS: FUROSEMIDE 20 MG TABLET PO SCH (08:06)
[2019-03-21] MEDS: FOLIC ACID 1 MG TABLET PO SCH (08:07)
[2019-03-21] MEDS: POTASSIUM CHLORIDE 10 MEQ/TAB.SA PO SCH (08:07)
[2019-03-21] MEDS: THIAMINE HCL 100 MG TABLET PO SCH (08:07)
[2019-03-21] MEDS: AMIODARONE HCL 200 MG TABLET PO SCH (08:07)
[2019-03-21] MEDS: APIXABAN 5 MG TABLET PO SCH (08:08)
[2019-03-21] MEDS: FAMOTIDINE 20MG TAB 20 MG TAB PO SCH (08:08)
[2019-03-21] MEDS: ASPIRIN 81 MG EC TAB PO SCH (08:13)
[2019-03-21] MEDS: SUCRALFATE 1 GM/10 ML PO SCH ×2 (08:13→14:04)
[2019-03-21] MEDS: CARBAMAZEPINE 200 MG TABLET PO SCH ×2 (08:13→14:04)
[2019-03-21] MEDS: METOPROLOL TARTRATE 50 MG TAB PO SCH ×2 (08:13→14:04)
[2019-03-21] MEDS: GABAPENTIN 300 MG CAPSULE PO SCH ×2 (08:13→14:04)
[2019-03-21] MEDS ORDERED: LACTULOSE 20 GM/30 ML UDCUP PO SCH (08:30)
--- NOTE | 2019-03-21 10:20 | NUR ---
cm note received call from lizzy russell and states pt is approved from [place] and call made to [facility] pt can go today if accepted. updated lizzy that pt is plan for dc today, and will need van transport. verbalizes understanding.
[2019-03-21 11:15] VITALS: BP 164/82
[2019-03-21] MEDS ORDERED: METFORMIN HCL 500 MG TABLET PO SCH (12:00)
--- NOTE | 2019-03-21 14:47 | NUR ---
SBAR REPORT HANDED TO DENISE HAND LVN OF [facility]. ALL QUESTIONS ANSWERED.
== END 2019-03-21 15:45 | DRG 291 ==
LOC: EDH 06:37 → EDHIP 10:09 → 3CH 13:03 → 2BH 03-17 14:28 → 2DH 03-18 23:57
PROVIDERS: ADMIT Internal Medicine; ATTEND Internal Medicine
DX: I11.0 Hypertensive heart disease with heart failure (principal); J96.01 Acute respiratory failure with hypoxia; E87.2 Acidosis; I48.19 Other persistent atrial fibrillation; B02.29 Other postherpetic nervous system involvement; D68.59 Other primary thrombophilia; J98.11 Atelectasis; Z16.24 Resistance to multiple antibiotics; I24.8 Other forms of acute ischemic heart disease; I50.43 Acute on chronic combined systolic (congestive) and diastolic (congestive) heart failure; I42.8 Other cardiomyopathies; L40.9 Psoriasis, unspecified; M51.16 Intervertebral disc disorders with radiculopathy, lumbar region; E78.5 Hyperlipidemia, unspecified; E87.6 Hypokalemia; G62.9 Polyneuropathy, unspecified; I25.10 Atherosclerotic heart disease of native coronary artery without angina pectoris; J44.9 Chronic obstructive pulmonary disease, unspecified; K59.00 Constipation, unspecified; M19.90 Unspecified osteoarthritis, unspecified site; E11.65 Type 2 diabetes mellitus with hyperglycemia; M47.26 Other spondylosis with radiculopathy, lumbar region; M48.061 Spinal stenosis, lumbar region without neurogenic claudication; N40.1 Benign prostatic hyperplasia with lower urinary tract symptoms; R33.8 Other retention of urine; Z79.84 Long term (current) use of oral hypoglycemic drugs; Z79.899 Other long term (current) drug therapy; Z87.891 Personal history of nicotine dependence; Z91.19 Patient's noncompliance with other medical treatment and regimen; I25.2 Old myocardial infarction; Z88.0 Allergy status to penicillin
CPT/HCPCS: 36415; 36600; 70450; 71045; 71046; 71250; 72131; 74176; 80048; 80053; 80061; 80076; 81001; 82550; 82803; 82948; 83036; 83605; 83735; 83880; 84100; 84145; 84443; 84484; 85025; 85027; 85610; 85730; 87040; 87071; 87205; 93005; 93306; 94640; 94664; 97039; 99291; G0378; J0360; J0696; J1650; J1815; J1940; J1956; J2405; J3475; J3480; P9046; P9047

== ENCOUNTER 2019-05-02 10:59 | Emergency (ER) | payer OTHER ==
[~2019-05-02 10:59] MED LIST changes: +ADAL1PEN SQ; -ADAL20SY SQ; -AEC81 PO; -ALBU1.252 IH; +AMIO200T5 PO; +ASPI-555 PO; -ATOR20TA65 PO; +ATOR40TA69 PO; +CARAL PO; -CARB200C7 PO; +CARB200T6 PO; -CARV25TA PO; -CYAN1TAB44 PO; -GABA-529 PO; +GABA600T10 PO; +INSLAN SQ; -INSU100C14 SQ; +INSU100C6 SQ; +ISOS20TA7 PO; +METO50TA18 PO; +NITR0.4T50 SL; +PANT40TA25 PO; +RAMI2.5C16 PO; -SILD20TA14 PO
[2019-05-02] MEDS ORDERED: SODIUM CHLORIDE 0.9% 500ML 500 ML IV ONE ×2 (11:38→13:26)
[2019-05-02 11:50] LABS: BASOPHILS % (AUTO) 0.8 % (0.0-5.0); EOSINOPHILS % (AUTO) 2.5 % (0.0-8.0); HEMATOCRIT 40.1 % (42-54); MEAN CORPUSCULAR HEMOGLOBIN 30.8 pg (27.0-33.0); MEAN CORPUSCULAR HGB CONC 34.2 g/dL (32.0-36.0); MONOCYTES % (AUTO) 10.3 % (3.0-13.0); NEUTROPHILS % (AUTO) 60.4 % (40.0-77.0); NUCLEATED RED BLOOD CELLS 0.1 % (0.0-0.19); PLATELET COUNT (AUTO) 167 K/uL (130-400); RED BLOOD CELL COUNT(AUTO) 4.45 MIL/uL (4.50-6.20); RED CELL DISTRIBUTION WIDTH 14.2 % (11.0-15.5); WHITE BLOOD COUNT (AUTO) 4.5 K/uL (4.8-10.8)
[2019-05-02 12:06] LABS: CREATININE 1.3 mg/dL (0.5-1.5); POTASSIUM 4.2 mmol/L (3.5-5.1)
[2019-05-02 12:38] LABS: APPEARANCE,URINE Clear (CLEAR); BILIRUBIN,URINE Negative (NEGATIVE); COLOR,URINE Yellow (YELLOW); GLUCOSE, URINE (UA) >=1000 mg/dL (NEGATIVE); KETONES,URINE Negative (NEGATIVE); LEUKOCYTE ESTERASE ,URINE Trace (NEGATIVE); NITRATE,URINE Negative (NEGATIVE); OCCULT BLOOD,URINE Negative (NEGATIVE); PROTEIN,URINE Negative (NEGATIVE); UROBILINOGEN,URINE 0.2 mg/dL (0.2-1.0)
[2019-05-02] MEDS ORDERED: INSULIN HUMULIN R 100 UNIT/ML 3ML ONE (12:48)
[2019-05-02 13:31] LABS: BACTERIA,URINE Few /HPF (None Seen); RBC,URINE 0-1 /HPF (0-1); SQUAMOUS EPITHELIAL CELL,UR 0-2 /HPF (0-2); WBC,URINE 0-1 /HPF (0-1)
== END 2019-05-02 15:41 | disposition home or self-care (01) ==
LOC: EDH 10:59
DX: E11.65 Type 2 diabetes mellitus with hyperglycemia (principal); I25.10 Atherosclerotic heart disease of native coronary artery without angina pectoris; J44.9 Chronic obstructive pulmonary disease, unspecified; I63.9 Cerebral infarction, unspecified; R42 Dizziness and giddiness; I11.0 Hypertensive heart disease with heart failure; I50.9 Heart failure, unspecified; I25.2 Old myocardial infarction; Z86.73 Personal history of transient ischemic attack (TIA), and cerebral infarction without residual deficits; M79.2 Neuralgia and neuritis, unspecified; Z88.8 Allergy status to other drugs, medicaments and biological substances; Z88.0 Allergy status to penicillin; Z98.890 Other specified postprocedural states; Z87.891 Personal history of nicotine dependence
CPT/HCPCS: 36415; 80048; 81001; 82948 ×2; 84484 ×2; 85025; 93005; 96360; 96361; 96372; 99285; J1815; J7040 ×2

== ENCOUNTER 2019-09-08 10:41 | Inpatient (IN) | payer OTHER ==
[~2019-09-08] VITALS: Ht 182.9 cm; Wt 98.4 kg
[~2019-09-08 10:41] MED LIST changes: -AMIO200T5 PO; +AMIO200T6 PO; -ASPI-555 PO; +ASPI-556 PO; -PANT40TA25 PO; +PANT40TA54 PO
[2019-09-08 11:21] LABS: BASOPHILS % (AUTO) 0.2 % (0.0-5.0); EOSINOPHILS % (AUTO) 0.1 % (0.0-8.0); HEMATOCRIT 38.5 % (42-54); LYMPHOCYTES % (AUTO) 6.4 % (21.0-51.0); MEAN CORPUSCULAR HEMOGLOBIN 30.1 pg (27.0-33.0); MEAN CORPUSCULAR HGB CONC 34.3 g/dL (32.0-36.0); MEAN CORPUSCULAR VOLUME 87.7 fL (79-99); MONOCYTES % (AUTO) 7.8 % (3.0-13.0); NEUTROPHILS % (AUTO) 84.9 % (40.0-77.0); PLATELET COUNT (AUTO) 198 K/uL (130-400); RED BLOOD CELL COUNT(AUTO) 4.39 MIL/uL (4.50-6.20); RED CELL DISTRIBUTION WIDTH 12.5 % (11.0-15.5); WHITE BLOOD COUNT (AUTO) 12.3 K/uL (4.8-10.8)
[2019-09-08 11:29] LABS: APPEARANCE,URINE Clear (CLEAR); BILIRUBIN,URINE Negative (NEGATIVE); COLOR,URINE Yellow (YELLOW); GLUCOSE, URINE (UA) >=1000 mg/dL (NEGATIVE); KETONES,URINE Negative (NEGATIVE); LEUKOCYTE ESTERASE ,URINE Negative (NEGATIVE); NITRATE,URINE Negative (NEGATIVE); OCCULT BLOOD,URINE Negative (NEGATIVE); PROTEIN,URINE Negative (NEGATIVE); UROBILINOGEN,URINE 0.2 mg/dL (0.2-1.0)
[2019-09-08 11:35] LABS: ALBUMIN 3.2 g/dL (3.5-5.0); BILIRUBIN,TOTAL 0.3 mg/dL (0.2-1.0); CREATININE 2.7 mg/dL (0.5-1.5); POTASSIUM 4.5 mmol/L (3.5-5.1); TOTAL PROTEIN, SERUM 7.8 g/dL (6.0-8.3)
[2019-09-08 11:51] LABS: BACTERIA,URINE Rare /HPF (None Seen); RBC,URINE 0-1 /HPF (0-1); SQUAMOUS EPITHELIAL CELL,UR Rare /HPF (0-2); WBC,URINE 0-1 /HPF (0-1)
[2019-09-08] MEDS ORDERED: INSULIN HUMULIN R 100 UNIT/ML 3ML ONE (12:09)
[2019-09-08 12:51] LABS: INR 0.9 (0.85-1.15); PARTIAL THROMBOPLASTIN TIME 28.1 SEC (26.3-35.5); PROTHROMBIN TIME 9.8 SEC (9.6-11.6)
[2019-09-08] MEDS ORDERED: ONDANSETRON HCL 4 MG/2 ML VIAL IV PRN (14:45)
[2019-09-08] MEDS ORDERED: ACETAMINOPHEN 325 MG TAB PO PRN ×2 (14:45)
[2019-09-08] MEDS ORDERED: LACTATED RINGERS 1000ML 1,000 ML IV ONE (17:16)
[2019-09-08] MEDS ORDERED: LACTATED RINGERS 1000ML 1,000 ML IV SCH (17:45)
[2019-09-08] MEDS ORDERED: FURO20TA4 PO (17:52)
[2019-09-08] MEDS ORDERED: APIX5TAB PO (17:52)
[2019-09-08] MEDS ORDERED: LISI40TA4 PO (17:52)
[2019-09-08] MEDS ORDERED: TAMS-1 PO (17:52)
[2019-09-08] MEDS ORDERED: SPIR25TA6 PO (17:52)
[2019-09-08] MEDS ORDERED: ISOS20TA7 PO (17:52)
[2019-09-08] MEDS ORDERED: OXCA300T28 PO (17:52)
[2019-09-08] MEDS ORDERED: AMLO-257 PO (17:52)
[2019-09-08] MEDS ORDERED: LABE200T5 PO (17:52)
[2019-09-08 17:53] VITALS: BP 127/68
[2019-09-08] MEDS: INSULIN LISPRO 100 UNIT/ML 3ML SQ SCH (17:58)
[2019-09-08 20:00] VITALS: BP 113/56
[2019-09-08] MEDS: AMLODIPINE BESYLATE 2.5 MG TAB PO SCH (21:00)
[2019-09-08] MEDS: FAMOTIDINE/PF 20 MG/2 ML VIAL IV SCH (21:14)
[2019-09-08] MEDS: FUROSEMIDE 10 MG/ML 2ML VIAL IV SCH (21:15)
[2019-09-08] MEDS: APIXABAN 5 MG TABLET PO SCH (21:15)
[2019-09-08] MEDS: INSULIN GLARGINE 100 UNITS/ML 10 ML VIAL SQ SCH (21:21)
[2019-09-08] MEDS ORDERED: ISOSORBIDE DINITRATE 10 MG TABLET PO SCH (21:45)
[2019-09-08 23:58] VITALS: BP 138/82
[2019-09-09] MEDS: INSULIN LISPRO 100 UNIT/ML 3ML SQ SCH ×7 (00:25→17:06)
[2019-09-09 04:00] VITALS: BP 161/93
[2019-09-09 05:35] LABS: BASOPHILS % (AUTO) 0.3 % (0.0-5.0); EOSINOPHILS % (AUTO) 1.3 % (0.0-8.0); HEMATOCRIT 35.2 % (42-54); LYMPHOCYTES % (AUTO) 13.6 % (21.0-51.0); MEAN CORPUSCULAR HEMOGLOBIN 29.8 pg (27.0-33.0); MEAN CORPUSCULAR HGB CONC 34.1 g/dL (32.0-36.0); MEAN CORPUSCULAR VOLUME 87.3 fL (79-99); MONOCYTES % (AUTO) 8.8 % (3.0-13.0); NEUTROPHILS % (AUTO) 75.2 % (40.0-77.0); PLATELET COUNT (AUTO) 174 K/uL (130-400); RED BLOOD CELL COUNT(AUTO) 4.03 MIL/uL (4.50-6.20); RED CELL DISTRIBUTION WIDTH 12.3 % (11.0-15.5); WHITE BLOOD COUNT (AUTO) 8.6 K/uL (4.8-10.8)
--- NOTE | 2019-09-09 05:57 | NUR ---
SLEPT Pt slept well.Voiced no complaints of pain or discomfort.
[2019-09-09 05:58] LABS: BILIRUBIN,TOTAL 0.3 mg/dL (0.2-1.0); CREATININE 1.8 mg/dL (0.5-1.5); POTASSIUM 4.3 mmol/L (3.5-5.1); TOTAL PROTEIN, SERUM 7.2 g/dL (6.0-8.3)
--- NOTE | 2019-09-09 08:00 | NUR ---
ANXIOUS pt states he needs his home medication medication at bedside oxcarbazepine 150 mg po taken on his own Addendum: 09/09/19 at 1135 by RICKEY ROLAND RN RN Amended: Links added.
[2019-09-09 08:14] VITALS: BP 120/58
[2019-09-09] MEDS ORDERED: LISINOPRIL 10 MG TABLET PO SCH (09:00)
[2019-09-09] MEDS: APIXABAN 5 MG TABLET PO SCH ×2 (09:39→21:47)
[2019-09-09] MEDS: FUROSEMIDE 10 MG/ML 2ML VIAL IV SCH (09:42)
[2019-09-09] MEDS: AMLODIPINE BESYLATE 2.5 MG TAB PO SCH (09:42)
[2019-09-09 11:52] VITALS: BP 150/85
--- NOTE | 2019-09-09 13:25 | NUR ---
INITIAL SW spoke with patient. Patient states he lives alone. Emergency contact is friend, Joan Mackenzie, [phone]. He states he had nurse that was coming to home but has not been there in the last two weeks. Patient states he has provider X 13 hours a week but does not remember the name of the agency. DME: wheelchair, walker, BPM, glucometer (uses insulin). Patient states he needs help with ADL's but does drive. PCP is [facility] at [facility]. Patient is on [facility]. Pharmacy is [facility]. Patient is [facility]. Patient is requesting placement. He states he is not able to care for himself safely at home. Addendum: 09/09/19 at 1328 by REJI FRANKLIN SS Amended: Links added.
[2019-09-09] MEDS ORDERED: NITROGLYCERIN 0.4 MG SL TAB SL SCH (15:00)
[2019-09-09] MEDS ORDERED: HYDRALAZINE HCL 20 MG/ML VIAL IV PRN (15:15)
--- NOTE | 2019-09-09 15:47 | NUR ---
RD NOTIFICATION Pt admitted with Hypotension, Volume depletion, GBW. Hx of DM. Elevated serum BG, 340 at time of screen. Noted, +S/S dehydration, per EMR. Recommend 60gm CCD, Glucerna BID. RD to follow up with nutrition education. Please notify as additional nutrition concerns arise. Thank you. Addendum: 09/09/19 at [address] Amended: Links added.
[2019-09-09 16:03] VITALS: BP 124/73
[2019-09-09] MEDS ORDERED: SUCRALFATE 1 GM/10 ML PO SCH (17:00)
[2019-09-09] MEDS: FUROSEMIDE 20 MG TABLET PO SCH (17:12)
[2019-09-09 19:00] VITALS: BP 118/55
[2019-09-09] MEDS ORDERED: FUROSEMIDE 20 MG TABLET PO SCH (21:00)
[2019-09-09] MEDS: FAMOTIDINE/PF 20 MG/2 ML VIAL IV SCH (21:46)
[2019-09-09] MEDS: SUCRALFATE 1 GM/10 ML PO SCH (21:46)
[2019-09-09] MEDS: OXCARBAZEPINE 300 MG TAB PO SCH (21:46)
[2019-09-09] MEDS: TAMSULOSIN HCL 0.4 MG CAP.ER.24H PO SCH (21:47)
[2019-09-09] MEDS: METOPROLOL TARTRATE 25 MG TAB PO SCH (21:47)
[2019-09-09] MEDS: ISOSORBIDE MONONITRATE 20 MG TABLET PO SCH (21:47)
[2019-09-09] MEDS: INSULIN GLARGINE 100 UNITS/ML 10 ML VIAL SQ SCH (21:55)
[2019-09-09 23:00] VITALS: BP 103/62
[2019-09-10] MEDS: INSULIN LISPRO 100 UNIT/ML 3ML SQ SCH ×7 (00:26→18:04)
[2019-09-10 03:00] VITALS: BP 128/64
[2019-09-10] MEDS ORDERED: PANTOPRAZOLE SODIUM 40 MG TABLET.DR ONE (05:37)
[2019-09-10] MEDS: PANTOPRAZOLE SODIUM 40 MG TABLET.DR PO SCH (06:35)
[2019-09-10 08:00] VITALS: BP 113/76
[2019-09-10] MEDS ORDERED: LISINOPRIL 40 MG TABLET PO SCH (09:00)
[2019-09-10] MEDS: SUCRALFATE 1 GM/10 ML PO SCH ×4 (09:10→21:00)
[2019-09-10] MEDS: ASPIRIN 81 MG EC TAB PO SCH (09:11)
[2019-09-10] MEDS: APIXABAN 5 MG TABLET PO SCH ×2 (09:12→21:30)
[2019-09-10] MEDS: OXCARBAZEPINE 300 MG TAB PO SCH ×2 (09:12→21:31)
[2019-09-10] MEDS: LISINOPRIL 5 MG TABLET PO SCH (09:13)
[2019-09-10] MEDS: SPIRONOLACTONE 25 MG TAB PO SCH (09:14)
[2019-09-10] MEDS: FUROSEMIDE 20 MG TABLET PO SCH ×2 (09:14→18:02)
[2019-09-10] MEDS: METOPROLOL TARTRATE 25 MG TAB PO SCH ×2 (09:14→21:30)
--- NOTE | 2019-09-10 10:10 | NUR ---
PT REFUSED PHYSICAL THERAPY.
--- NOTE | 2019-09-10 10:11 | NUR ---
Patient refusing Skilled Physical Therapy Evaluation 09/10/2019, notified BETSEY Dillon charge-Nurse regarding patient's discretion. Addendum: 09/10/19 at 1013 by REN TRAN, PT PT Amended: Links added.
[2019-09-10 12:05] VITALS: BP 149/79
--- NOTE | 2019-09-10 13:20 | NUR ---
DR. Gallardo WAS MADE AWARE OF PT REFUSAL FOR PHYSICAL THERAPY. AFTER MD SPOKE WITH PT HE REQUESTED PHYSIAL THERAPY IN A.M. 09/11/19. PT WAS MADE AWARE.
[2019-09-10 17:15] VITALS: BP 149/77
[2019-09-10 19:00] VITALS: BP 149/71
[2019-09-10] MEDS: FAMOTIDINE/PF 20 MG/2 ML VIAL IV SCH (21:29)
[2019-09-10] MEDS: TAMSULOSIN HCL 0.4 MG CAP.ER.24H PO SCH (21:30)
[2019-09-10] MEDS: ISOSORBIDE MONONITRATE 20 MG TABLET PO SCH (21:30)
[2019-09-10] MEDS: INSULIN GLARGINE 100 UNITS/ML 10 ML VIAL SQ SCH (21:40)
[2019-09-11] VITALS: BP 116/64
[2019-09-11] MEDS: INSULIN LISPRO 100 UNIT/ML 3ML SQ SCH ×5 (01:15→13:20)
[2019-09-11 04:00] VITALS: BP 133/76
[2019-09-11 05:30] LABS: BASOPHILS % (AUTO) 0.3 % (0.0-5.0); EOSINOPHILS % (AUTO) 1.2 % (0.0-8.0); LYMPHOCYTES % (AUTO) 14.1 % (21.0-51.0); MEAN CORPUSCULAR HEMOGLOBIN 29.9 pg (27.0-33.0); MEAN CORPUSCULAR HGB CONC 33.1 g/dL (32.0-36.0); MEAN CORPUSCULAR VOLUME 90.2 fL (79-99); NEUTROPHILS % (AUTO) 73.8 % (40.0-77.0); PLATELET COUNT (AUTO) 172 K/uL (130-400); RED BLOOD CELL COUNT(AUTO) 3.88 MIL/uL (4.50-6.20); RED CELL DISTRIBUTION WIDTH 12.2 % (11.0-15.5); WHITE BLOOD COUNT (AUTO) 6.8 K/uL (4.8-10.8)
[2019-09-11 06:01] LABS: ALBUMIN 2.9 g/dL (3.5-5.0); BILIRUBIN,TOTAL 0.4 mg/dL (0.2-1.0); CREATININE 1.6 mg/dL (0.5-1.5); POTASSIUM 4.6 mmol/L (3.5-5.1); TOTAL PROTEIN, SERUM 7.2 g/dL (6.0-8.3)
[2019-09-11] MEDS: PANTOPRAZOLE SODIUM 40 MG TABLET.DR PO SCH (06:56)
[2019-09-11 07:52] VITALS: BP 146/80
[2019-09-11] MEDS: SUCRALFATE 1 GM/10 ML PO SCH (09:00)
[2019-09-11] MEDS: METOPROLOL TARTRATE 25 MG TAB PO SCH (09:05)
[2019-09-11] MEDS: APIXABAN 5 MG TABLET PO SCH (09:06)
[2019-09-11] MEDS: FUROSEMIDE 20 MG TABLET PO SCH (09:06)
[2019-09-11] MEDS: ASPIRIN 81 MG EC TAB PO SCH (09:06)
[2019-09-11] MEDS: SPIRONOLACTONE 25 MG TAB PO SCH (09:06)
[2019-09-11] MEDS: OXCARBAZEPINE 300 MG TAB PO SCH (09:07)
[2019-09-11] MEDS: LISINOPRIL 5 MG TABLET PO SCH (09:07)
[2019-09-11 11:26] VITALS: BP 133/76
[2019-09-11] MEDS ORDERED: SUCRALFATE 1 GM TABLET PO SCH (14:36)
--- NOTE | 2019-09-11 15:52 | NUR ---
DCP: HOME Sw met with pt who states that he is ready to go home, now. Pt states he will not go to a [facility] and [facility]. Informed pt that [place] does not pay for Asst Lving facilities, they [facility]. Encouraged pt to contact [place] for possible increase in provider hours. Dr Gallardo rounded on pt while SW present. Pt told Dr Gallardo he was ready to go home now. DC order given to nurse. CM made aware
[2019-09-11 16:00] VITALS: BP 126/60
[2019-09-16] MEDS ORDERED: ADALIMUMAB SQ SCH (09:00)
== END 2019-09-11 17:05 | disposition home or self-care (01) | DRG 312 ==
LOC: EDH 10:41 → EDHIP 14:33 → 3CH 16:42
PROVIDERS: ADMIT Hospitalist; ATTEND Hospitalist
DX: I95.1 Orthostatic hypotension (principal); I69.354 Hemiplegia and hemiparesis following cerebral infarction affecting left non-dominant side; I25.10 Atherosclerotic heart disease of native coronary artery without angina pectoris; I50.9 Heart failure, unspecified; I11.0 Hypertensive heart disease with heart failure; E11.65 Type 2 diabetes mellitus with hyperglycemia; M79.2 Neuralgia and neuritis, unspecified; E86.9 Volume depletion, unspecified; E78.5 Hyperlipidemia, unspecified; D64.9 Anemia, unspecified; I48.91 Unspecified atrial fibrillation; R29.6 Repeated falls; J44.9 Chronic obstructive pulmonary disease, unspecified; W19.XXXA Unspecified fall, initial encounter; Y93.01 Activity, walking, marching and hiking; Y92.098 Other place in other non-institutional residence as the place of occurrence of the external cause; Y99.8 Other external cause status; Z79.01 Long term (current) use of anticoagulants; I25.2 Old myocardial infarction; Z79.4 Long term (current) use of insulin; Z87.891 Personal history of nicotine dependence; Z95.5 Presence of coronary angioplasty implant and graft; Z80.9 Family history of malignant neoplasm, unspecified; Z82.49 Family history of ischemic heart disease and other diseases of the circulatory system
CPT/HCPCS: 36415; 70450; 71045; 80053; 81001; 82550; 82948; 83690; 84145; 84484; 85025; 85610; 85730; 93005; 97039; G0378; J1815; J1940; J3490; J7120

== ENCOUNTER → 2020-03-09 | Outpatient (CLI) | payer OTHER ==
[~2020-03-09] MED LIST changes: -AMIO200T6 PO; +APIX5TAB PO; -ATOR40TA69 PO; -CARB200T6 PO; +FURO20TA4 PO; -FURO80TA3 PO; -GABA600T10 PO; -INSLAN SQ; -INSU100C6 SQ; +LISI40TA4 PO; -METO50TA18 PO; +OXCA300T28 PO; -RAMI2.5C16 PO; +SPIR25TA6 PO; +TAMS-1 PO
[2020-03-09 09:15] LABS: BASOPHILS % (AUTO) 0.5 % (0.0-5.0); EOSINOPHILS % (AUTO) 2.3 % (0.0-8.0); HEMATOCRIT 36.3 % (42-54); LYMPHOCYTES % (AUTO) 18.1 % (21.0-51.0); MEAN CORPUSCULAR HGB CONC 32.5 g/dL (32.0-36.0); MEAN CORPUSCULAR VOLUME 86.2 fL (79-99); MONOCYTES % (AUTO) 9.7 % (3.0-13.0); NEUTROPHILS % (AUTO) 69.1 % (40.0-77.0); PLATELET COUNT (AUTO) 250 K/uL (130-400); RED BLOOD CELL COUNT(AUTO) 4.21 MIL/uL (4.50-6.20); RED CELL DISTRIBUTION WIDTH 14.2 % (11.0-15.5); WHITE BLOOD COUNT (AUTO) 6.2 K/uL (4.8-10.8)
[2020-03-09 09:31] LABS: ALBUMIN 3.7 g/dL (3.5-5.0); BILIRUBIN,TOTAL 0.3 mg/dL (0.2-1.0); CREATININE 1.2 mg/dL (0.5-1.5); CRP QUANTITATIVE 7.1 mg/L (0.00-9.0); POTASSIUM 3.7 mmol/L (3.5-5.1); TOTAL PROTEIN, SERUM 7.8 g/dL (6.0-8.3)
--- NOTE | 2020-03-09 10:50 | NUR ---
MBSS COMPLETED. ASPIRATION WITH NECTAR THICK LIQUIDS, PENETRATION WITH THIN, NECTAR, AND MIXED TEXTURES. RECOMMEND REGULAR SOLIDS (NO MIXED TEXTURES), HONEY THICK LIQUIDS, AND PILLS WHOLE WITH LIQUIDS TOLERATED. MGMT CONSULTANT REVIEWED RESULTS AND RECOMMENDATIONS WITH PATIENT AND EDUCATED ON RISKS AND CONSEQUENCES OF ASPIRATION. MGMT CONSULTANT PROVIDED PATIENT WITH THICKENER CAN AND DEMONSTRATED HOW TO REACH HONEY THICK CONSISTENCY. ALL QUESTIONS ANSWERED AT THIS TIME. Addendum: 03/09/[address] JOSE BURTON Amended: Links added.
== END | disposition home or self-care (01) ==
LOC: RAH 08:44
PROVIDERS: ATTEND Internal Medicine
DX: R13.12 Dysphagia, oropharyngeal phase (principal); K51.90 Ulcerative colitis, unspecified, without complications
CPT/HCPCS: 36415; 74230; 80053; 82306; 85025; 86140; 92611